=== PATIENT | male | born 1970 | race Caucasian/White ===

== ENCOUNTER 2021-10-28 18:08 | Emergency (ER) | payer SELFPAY ==
[2021-10-28 18:23] VITALS: BP 133/87; PULSE 99; RESP 18; TEMP 36.6; O2SAT 99
--- NOTE | 2021-10-28 18:28 | ED.SKABFB ---
HPI - Skin/Abscess/Foreign Bdy General Chief complaint: Wound/Laceration Stated complaint: boil Time Seen by Provider: 10/28/21 18:28 Source: patient, RN notes reviewed and old records reviewed Mode of arrival: ambulatory Limitations: no limitations History of Present Illness HPI narrative: 51 year old male who presents to [facility] care with complaints of abscess of his left inner buttock for the past4-5 days. Patient reports that he has been putting warm compresses to inflamed tissue with area opening and draining today. 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 MD complaint: abscess/boil Onset (ago): day(s) (4-5 days) Location: buttocks (left) Treatments prior to arrival: other (warm compresses) Related Data Allergies Allergy/AdvReac Type Severity Reaction Status Date / Time No Known Allergies Allergy Verified 10/28/21 18:29 Review of Systems Review of Systems: CONSTITUTIONAL: Denies fever, chills, or sweats. EYES: Denies visual changes, redness, or discharge. ENT: Denies rhinorrhea, congestion, sore throat, or otalgia. CARDIOVASCULAR: Denies chest pain, palpitations, or edema. RESPIRATORY: Denies cough or dyspnea. GASTROINTESTINAL: Denies abdominal pain, nausea, vomiting, or diarrhea. GENITOURINARY: Denies dysuria or hematuria. SKIN: Denies rash or itching positive for draining abscess to left inner buttock region MUSCULOSKELETAL: Denies back pain, joint pain, or myalgia. NEUROLOGIC: Denies headache, numbness, or weakness. PSYCHIATRIC: Denies anxiety or depression. All systems reviewed & are unremarkable except as noted in HPI and below PMFSH Social History Social History (Updated 10/28/21 @ 19:05 by Anastasia Hernandez NP) Smoking status: Current every day smoker Tobacco type: cigarettes Alcohol intake: unknown Substance use: unknown Gender identity (if verbalized by the patient): Male Comments At time of signature, agree with nursing past medical, surgical, social and family history. There is no relevant family history pertinent to the presenting complaint Exam Narrative: GENERAL: Well-appearing, well-nourished, and in no acute distress. HEAD: Normocephalic, atraumatic. EYES: PERRLA and EOMI. ENT: Nares clear, no rhinorrhea or epistaxis. Mucous membranes moist. TMs normal with good light reflex, throat pink with no lesions or exudates or tonsillar swelling NECK: Supple. No lymphadenopathy CHEST: Clear to auscultation. No respiratory distress. SaO2 99% on room air no cough or tachypnea noted HEART: Regular rate and rhythm. No murmur heard. Normal peripheral pulses. ABDOMEN: Soft, nontender, nondistended, normal active bowel sounds. EXTREMITIES: Normal range of motion. No edema. SKIN: Warm, dry, no rash. Abscess noted to the inner buttock cheek draining bloody purulent drainage with some fluctuant tissue noted with some redness of tissue area 1cm X 1cm in size, patient states that tissue area was size of egg before it started draining.patient denies any acute pain to site at present time, patient states that pain has decreased since it drained this morning. NEURO: No focal deficits. Alert and oriented x3. Course Course Level of Care: Express Care Visit Vital Signs Vital signs: Vital Signs Temperature 36.6 C 10/28/21 18:23 Pulse Rate 99 10/28/21 18:23 Respiratory Rate 18 10/28/21 18:23 Blood Pressure 133/87 10/28/21 18:23 Pulse Oximetry 99 10/28/21 18:23 Oxygen Delivery Room Air 10/28/21 18:23 Temperature 36.6 C 10/28/21 18:23 Pulse Rate 99 10/28/21 18:23 Respiratory Rate 18 10/28/21 18:23 Blood Pressure 133/87 10/28/21 18:23 Pulse Oximetry 99 10/28/21 18:23 Oxygen Delivery Room Air 10/28/21 18:23 MDM - Skin/Abscess/Foreign Bdy Differential Diagnosis Differential diagnosis: Likely abscess of skin or subcutaneous tissue, cellulitis
== END 2021-10-28 18:50 | disposition home or self-care (01) ==
PROVIDERS: Emergency Provider Registered Nurse
DX: L02.31 Cutaneous abscess of buttock (principal); F17.210 Nicotine dependence, cigarettes, uncomplicated
CPT/HCPCS: 99203; G0463